=== PATIENT | female | born 1990 | race Caucasian/White ===

== ENCOUNTER 2017-01-20 14:29 | Emergency (ER) | payer MEDICAID, OTHER, SELFPAY ==
[2017-01-20] MEDS ORDERED: Azithromycin 250 MG TAB ONE (14:57)
== END 2017-01-20 15:02 | disposition home or self-care (01) ==
LOC: MADERS 14:29
DX: K04.7 Periapical abscess without sinus (principal); Z79.899 Other long term (current) drug therapy
CPT/HCPCS: 99283